=== PATIENT | female | born 1965 | race Caucasian/White ===

== ENCOUNTER 2018-06-16 03:18 | Emergency (ER) | payer OTHER ==
[2018-06-16 03:27] VITALS: BP 117/82; PULSE 80; TEMP 98.4; BMI 27.4
[2018-06-16] MEDS ORDERED: IBUPROFEN 400 MG TABLET (FP) PO ONE (03:43)
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
== END 2018-06-16 05:36 | disposition home or self-care (01) ==
LOC: JER 03:18
PROC: 2W3DX1Z Immobilization of Left Lower Arm using Splint (ICD-10-PCS; principal; 2018-06-16)
DX: S60.212A Contusion of left wrist, initial encounter (principal); Y04.2XXA Assault by strike against or bumped into by another person, initial encounter; Y93.F9 Activity, other caregiving; Y92.230 Patient room in hospital as the place of occurrence of the external cause; Y99.0 Civilian activity done for income or pay; I48.0 Paroxysmal atrial fibrillation
CPT/HCPCS: 73110-TC-LR-FY; 73130-TC-LT-FY; 99282-25

== ENCOUNTER 2019-12-01 23:43 | Emergency (ER) | payer OTHER ==
[2019-12-01] MEDS ORDERED: IBUPROFEN 200 MG TABLET PO ONE (23:54)
[2019-12-01 23:55] VITALS: BP 134/77; PULSE 77; TEMP 97.3; BMI 24.5
[2019-12-02] MEDS ORDERED: IBUPROFEN 600 MG TABLET (FP) PO ONE ×2 (00:11)
== END 2019-12-02 00:59 | disposition home or self-care (01) ==
LOC: JER 23:43
DX: S63.502A Unspecified sprain of left wrist, initial encounter (principal); X50.9XXA Other and unspecified overexertion or strenuous movements or postures, initial encounter
CPT/HCPCS: 73110-TC-LT-FY; 73130-TC-LT-FY; 99283-25